=== PATIENT | male | born 1990 | race American Indian/Alaskan Native ===

== ENCOUNTER → 2025-04-15 | Outpatient (CLI) | payer OTHER, SELFPAY ==
--- NOTE | 2025-04-15 10:30 | XR_ITS ---
Examination: CT right shoulder, without contrast. 2-D sagittal reconstructions. 2-D coronal reconstructions. 3-D reconstructions. Date and time of exam:April 15, 2025, 1049 hours INDICATIONS: Right shoulder pain several months CTDI: vol (mGy):25.2 DLP: (mGycm):01/19/2026 Technique: Multiple 1.25 mm axial sections of the right shoulder without intravenous contrast have been obtained. 2-D sagittal and coronal reconstructions have been obtained. 3-D reconstructions have been obtained. Low dose protocols were performed. One or more of the following dose reduction techniques were used; automated exposure control, adjustment of the mA and/or KV according to patient size, use of iterative reconstruction technique. Findings: Mild narrowing glenohumeral joint No shoulder fracture or dislocation No AC joint separation No soft tissue calcific tendinitis Adjacent ribs intact as well as scapula and clavicle IMPRESSION: Mild narrowing right humeral joint
== END | disposition home or self-care (01) ==
PROVIDERS: Referring Provider Nurse Practitioner Family; Visit Provider Nurse Practitioner Family
DX: M25.811 Other specified joint disorders, right shoulder (principal); Z74.09 Other reduced mobility
CPT/HCPCS: 73200